=== PATIENT | female | born 1980 | race Caucasian/White ===

== ENCOUNTER 2023-01-06 23:47 | Emergency (ER) | payer MEDICAID ==
[2023-01-07] MEDS ORDERED: Ketorolac 30 MG/ML SDV IM ONE (00:21)
[2023-01-07] MEDS ORDERED: Bupivacaine 0.5%/EPINEPHrine 1:200,000 1.8 ML Cartridge INJECT ONE (00:56)
== END 2023-01-07 01:28 | disposition home or self-care (01) ==
LOC: JP.ED 23:47
DX: G43.909 Migraine, unspecified, not intractable, without status migrainosus (principal)
CPT/HCPCS: 64400; 96372; 99283; J1885